=== PATIENT | female | born 1970 | race Caucasian/White ===

== ENCOUNTER 2024-07-12 10:09 | Inpatient (IN) | payer MEDICAID ==
[2024-07-09 12:21] LABS: EOSINOPHILS # (AUTO) 0.6 X10'3 (0-0.9); MONOCYTES # (AUTO) 0.9 X10'3 (0-0.9); PRE OP HEMOGLOBIN 13.5 g/dL (12.0-16.0); RED CELL DISTRIBUTION WIDTH 14.2 % (11.5-14.5)
[2024-07-09 12:23] LABS: BASOPHILS # (AUTO) 0.1 X10'3 (0-0.2); BASOPHILS % (AUTO) 0.9 % (0-1); EOSINOPHILS % (AUTO) 4.9 % (0-6); LYMPHOCYTES % (AUTO) 31.7 % (21-51); MEAN CORPUSCULAR HEMOGLOBIN 27.1 PG (27.0-31.0); MEAN CORPUSCULAR HGB CONC 33.3 g/dL (33.0-36.5); MEAN CORPUSCULAR VOLUME 81.3 FL (78-98); MEAN PLATELET VOLUME 8.3 FL (7.4-10.4); NEUTROPHILS % (AUTO) 55.5 % (42-75); PRE OP HEMATOCRIT 40.6 % (35.0-45.0); PRE OP PLATELET COUNT 464 X10'3 (140-440); PRE OP WHITE BLOOD COUNT 12.6 10'3 (4.8-10.8)
[2024-07-09 12:33] LABS: ALBUMIN 3.7 G/DL (3.4-5.0); ALBUMIN/GLOBULIN RATIO 0.8 (1.1-1.5); ALKALINE PHOSPHATASE 105 IU/L (46-116); BLOOD UREA NITROGEN 16 MG/DL (7-18); BUN/CREATININE RATIO 12.3 (10.0-20.0); CALCIUM 10.1 MG/DL (8.5-10.1); CHLORIDE 99 MMOL/L (99-107); PRE OP ALT 44 U/L (30-65); PRE OP ANION GAP 12 (8-16); PRE OP AST 32 U/L (10-37); PRE OP BILIRUB, TOTAL 0.3 MG/DL (0.0-1.0); PRE OP GLUCOSE 138 MG/DL (70-104); PRE OP POTASSIUM 4.4 MMOL/L (3.4-5.1); PRE OP SODIUM 138 MMOL/L (135-145); TOTAL CARBON DIOXIDE 26.9 MMOL/L (24-32); TOTAL PROTEIN 8.4 G/DL (6.4-8.2); eGFR 43 ML/MIN
[2024-07-09 12:37] LABS: HEMOGLOBIN A1C 6.9 % (4.5-6.2)
[2024-07-12] VITALS (28 sets, daily range): BP systolic 118–155; BP diastolic 54–86; PULSE 75–96; RESP 12–18; TEMP 98–98.8; O2SAT 90–100
[~2024-07-12] VITALS: Ht 172.7 cm; Wt 115.2 kg
[2024-07-12] MEDS: ceFAZolin 2gm in dextrose, iso 50 ML IV ONE (05:30)
[~2024-07-12 10:09] MED LIST: ARMO250T6 PO; BUPR300T53 PO; BUSP10TA10 PO; BUSP10TA11 PO; CETI10TA19 PO; CHOL200052 PO; CYCL5TAB4 PO; DICL100G31 TOP; DICY20TA17 PO; FLUT16SP11 BOTHNARES; FURO-150 PO; HYDR50TA65 PO; LURA120T PO; MELO-102 PO; METF-438 PO; NICO-631 TOP; OXYC1TAB17 PO; PREG200C29 PO; ROPIVAcaine 0.5% (5mg/ml) 30ml vial ONE; SEMA2PEN SUBCUT; SPIR25TA5 PO; VANCOMYCIN 1,500MG inj. 1,500 MG in normal saline 500ml IV soln 300 ML IV ONE; ceFAZolin 2gm in dextrose, iso 50 ML IV ONE; famotidine 20mg tablet PO ONE; mineral oil 10ml sterile, topical TP ONE; ringers solution, lacted 1,000 ML IV SCH; tranexamic acid 650mg tablet PO ONE
[2024-07-12] MEDS ORDERED: BUPIVACAINE/MELOXICAM 14 ML VIAL IL ONE (10:15)
[2024-07-12] MEDS ORDERED: tetracaine 1% (10mg/ml) pres. free inj. ONE (10:39)
[2024-07-12] MEDS ORDERED: BUPIVACAINE liposomal/PF 13.3 MG/ML 10mL vial IM ONE (10:39)
[2024-07-12] MEDS ORDERED: BUPIVAcaine/PF 5 mg/ml 10ml ONE (10:39)
[2024-07-12] MEDS: VANCOMYCIN/WATER FOR INJ (PEG) 1.5GM/300 ML IVPB IV ONE (10:48)
[2024-07-12] MEDS: ringers solution, lacted 1,000 ML IV SCH ×2 (10:48→12:20)
[2024-07-12] MEDS: famotidine 20mg tablet PO ONE (10:49)
[2024-07-12] MEDS: tranexamic acid 650mg tablet PO ONE (11:35)
[2024-07-12] MEDS ORDERED: fentaNYL/PF 50MCG/1 ML 2ML syringe ONE (11:39)
[2024-07-12] MEDS ORDERED: MIDAZolam 1mg/ml 10ml vial ONE (11:39)
[2024-07-12] MEDS ORDERED: PHENYLephrine 10mg/ml 5ml injection IV ONE (11:40)
[2024-07-12] MEDS ORDERED: hydrALAZINE 20mg/ml inj. IV PRN (12:20)
[2024-07-12] MEDS ORDERED: morphine 2 MG/ML inj. syringe IV PRN (12:20)
[2024-07-12] MEDS ORDERED: labetalol 20mg/4ml (5mg/ml) syringe IV PRN (12:20)
[2024-07-12] MEDS ORDERED: fentaNYL/PF 50MCG/1 ML 2ML syringe IV PRN ×2 (12:20)
[2024-07-12] MEDS ORDERED: ondansetron/PF 4mg/2ml inj IV PRN ×2 (12:20→14:20)
[2024-07-12] MEDS: BUPIVACAINE/MELOXICAM 14 ML VIAL IL ONE (12:32)
[2024-07-12] MEDS ORDERED: acetaminophen 325mg tablet PO PRN (14:20)
[2024-07-12] MEDS ORDERED: diphenhydrAMINE 25mg capsule PO PRN ×2 (14:20)
[2024-07-12] MEDS ORDERED: busPIRone 5mg tablet PO PRN (14:20)
[2024-07-12] MEDS ORDERED: cyclobenzaprine 10mg tablet PO PRN (14:20)
[2024-07-12] MEDS ORDERED: oxyCODONE IR 5mg (immed. release) tablet PO PRN (14:20)
[2024-07-12] MEDS ORDERED: magnesium hydroxide 30ml (MOM) UD suspension PO PRN (14:20)
[2024-07-12] MEDS ORDERED: HYDROmorphone inj. 0.5 MG/0.5 ML DISP.SYRIN IV PRN (14:20)
[2024-07-12] MEDS ORDERED: naloxone 0.4 mg/ml inj IV PRN (14:20)
[2024-07-12] MEDS ORDERED: SEMAGLUTIDE 2 MG SQ SCH (14:20)
[2024-07-12] MEDS ORDERED: HYDROmorphone 1 mg/ml syringe IV PRN (14:20)
[2024-07-12] MEDS ORDERED: bisacodyl 10mg suppository rectal RC PRN (14:20)
[2024-07-12] MEDS: ceFAZolin/D5W- 1GM premix 50 ML IV SCH (16:00)
[2024-07-12] MEDS: dicyclomine 10 MG capsule PO SCH (16:00)
[2024-07-12] MEDS: morphine 4 MG/ML inj SYRINge IV PRN (16:17)
[2024-07-12] MEDS: pregabalin 75mg capsule PO SCH (19:40)
[2024-07-12] MEDS: pregabalin 25mg capsule PO SCH (19:40)
[2024-07-12] MEDS: oxyCODONE IR 5mg (immed. release) tablet PO PRN (19:40)
[2024-07-12] MEDS: sennosides 8.6mg tablet PO SCH (19:41)
[2024-07-12] MEDS: metFORMIN 500mg tablet PO SCH (19:41)
[2024-07-12] MEDS: busPIRone 5mg tablet PO SCH (19:41)
[2024-07-12] MEDS: vancomycin/NS 1 GM ADD-VANTAGE 250 ML IV SCH (19:42)
[2024-07-12] MEDS ORDERED: DICLOFENAC SODIUM 1% gel 1 50GM tube TP PRN (20:00)
[2024-07-12] MEDS: acetaminophen 325mg tablet PO SCH (21:50)
[2024-07-12] MEDS: hydrOXYzine 25 MG tablet PO SCH (21:50)
[2024-07-12] MEDS: lurasidone 60mg tablet PO SCH (21:51)
[2024-07-12] MEDS: spironolactone 25 MG tablet PO SCH (21:51)
[2024-07-12] MEDS: potassium cl 20mEq in 1/2 NS 1,000 ML IV SCH (22:20)
[2024-07-13 02:00] VITALS: BP 159/67; PULSE 82; RESP 18; TEMP 98.7; O2SAT 90
[2024-07-13 05:57] LABS: BASOPHILS # (AUTO) 0.1 X10'3 (0-0.2); BASOPHILS % (AUTO) 0.5 % (0-1); EOSINOPHILS # (AUTO) 0.5 X10'3 (0-0.9); EOSINOPHILS % (AUTO) 4.7 % (0-6); HEMOGLOBIN 10.6 g/dl (12.0-16.0); LYMPHOCYTES # (AUTO) 2.8 X10'3 (1.1-4.8); LYMPHOCYTES % (AUTO) 23.9 % (21-51); MEAN CORPUSCULAR HEMOGLOBIN 26.8 PG (27.0-31.0); MEAN CORPUSCULAR HGB CONC 33.1 g/dL (33.0-36.5); MONOCYTES % (AUTO) 8.6 % (2-12); NEUTROPHILS # (AUTO) 7.2 X10'3 (1.8-7.7); NEUTROPHILS % (AUTO) 62.3 % (42-75); PLATELET COUNT 277 X10'3 (140-440); RED BLOOD COUNT 3.94 X10'6 (4.20-5.60); RED CELL DISTRIBUTION WIDTH 14.1 % (11.5-14.5); WHITE BLOOD COUNT 11.5 X10'3 (4.5-11.0)
[2024-07-13 06:28] LABS: ANION GAP 8 (8-16); CHLORIDE 105 MMOL/L (99-107); CREATININE 1.15 MG/DL (0.40-0.90); POTASSIUM 4.1 MMOL/L (3.5-5.1); SODIUM 139 MMOL/L (135-145); TOTAL CARBON DIOXIDE 25.6 MMOL/L (24-32); eCRCL 57 ML/MIN; eGFR 49 ML/MIN
[2024-07-13] MEDS ORDERED: cetirizine 10mg tablet PO PRN (08:00)
[2024-07-13] MEDS ORDERED: fluticasone nasal spray 16GM bottle NS PRN (08:00)
[2024-07-13] MEDS ORDERED: MELOXICAM 7.5 MG TABLET PO PRN (08:00)
[2024-07-13] MEDS ORDERED: ARMODAFINIL 250 MG PO SCH (08:00)
[2024-07-13 08:30] VITALS: RESP 18; O2SAT 93
[2024-07-13] MEDS: aspirin 325mg tablet PO SCH (09:48)
[2024-07-13] MEDS: cholecalciferol (vitamin D3) 1,000 unit (25mcg) tablet PO SCH (09:50)
[2024-07-13] MEDS: furosemide 20MG tablet PO SCH (09:51)
[2024-07-13] MEDS: BUPROPION HCL 150MG XL 24 HR 150 MG TAB PO SCH (09:52)
[2024-07-13 10:00] VITALS: BP 163/82; PULSE 90; RESP 18; TEMP 97.9; O2SAT 93
[2024-07-13 11:49] VITALS: RESP 18
[2024-07-13] MEDS ORDERED: celeCOXIB 100mg capsule PO SCH (20:00)
[2024-07-14] MEDS ORDERED: acetaminophen 325mg tablet PO PRN (18:20)
== END 2024-07-13 11:47 | disposition home or self-care (01) | DRG 326 ==
LOC: PAS IN 10:09 → MERGE 13:15 → ORTHO 4S 17:10
PROVIDERS: ADMIT Orthopaedic Surgery; ATTEND Orthopaedic Surgery
PROC: 8E0YXBZ Computer Assisted Procedure of Lower Extremity (ICD-10-PCS; 2024-07-12)
PROC: 8E0Y0CZ Robotic Assisted Procedure of Lower Extremity, Open Approach (ICD-10-PCS; 2024-07-12)
PROC: 3E0T3BZ Introduction of Anesthetic Agent into Peripheral Nerves and Plexi, Percutaneous Approach (ICD-10-PCS; 2024-07-12)
PROC: 0SRC0J9 Replacement of Right Knee Joint with Synthetic Substitute, Cemented, Open Approach (ICD-10-PCS; principal; 2024-07-12 11:40)
DX: M17.11 Unilateral primary osteoarthritis, right knee (principal); F31.9 Bipolar disorder, unspecified; J44.9 Chronic obstructive pulmonary disease, unspecified; M79.7 Fibromyalgia; Z90.49 Acquired absence of other specified parts of digestive tract; Z88.8 Allergy status to other drugs, medicaments and biological substances
CPT/HCPCS: 36415; 80051; 80053; 82565; 82948; 83036; 85025; 87081; 97110; 97116; 97161; 97530; A4215; A4615; A6449; A7000; C1713; C1776; C9088; G0378; J0665; J0666; J0690; J2250; J2270; J2371; J2795; J3010; J3370; J3372; J3480; J3490; J7120; Q0177

== ENCOUNTER 2025-01-07 09:06 | Inpatient (IN) | payer MEDICAID ==
[2025-01-04 12:41] LABS: MEAN PLATELET VOLUME 8.5 FL (7.4-10.4); PRE OP HEMATOCRIT 36.3 % (35.0-45.0); PRE OP HEMOGLOBIN 12.0 g/dL (12.0-16.0); PRE OP PLATELET COUNT 299 X10'3 (140-440); PRE OP WHITE BLOOD COUNT 10.7 10'3 (4.8-10.8); RED CELL DISTRIBUTION WIDTH 17.1 % (11.5-14.5)
[2025-01-04 12:52] LABS: CREATININE 1.29 MG/DL (0.40-0.90); PRE OP ALT 28 U/L (30-65); PRE OP ANION GAP 7 (8-16); PRE OP AST 26 U/L (10-37); PRE OP BILIRUB, TOTAL 0.3 MG/DL (0.0-1.0); PRE OP GLUCOSE 100 MG/DL (70-104); PRE OP POTASSIUM 4.0 MMOL/L (3.4-5.1); PRE OP SODIUM 142 MMOL/L (135-145); TOTAL CARBON DIOXIDE 30.8 MMOL/L (24-32); eGFR 43 ML/MIN
[~2025-01-07] VITALS: Ht 157.5 cm; Wt 104.3 kg
[2025-01-07] VITALS (26 sets, daily range): BP systolic 95–174; BP diastolic 63–94; PULSE 15–98; RESP 12–24; TEMP 97–98.1; O2SAT 92–97
[2025-01-07] MEDS: ceFAZolin 2gm/dext,iso 50mL 50 ML IV ONE (05:30)
[~2025-01-07 09:06] MED LIST changes: +ATOR40TA72 PO; +BUPIVACAINE/MELOXICAM 14 ML VIAL IL ONE; -CYCL5TAB4 PO; -DICL100G31 TOP; -FLUT16SP11 BOTHNARES; -HYDR50TA65 PO; +LIDO700A47 TOP; +LOSA25TA41 PO; +METF-436 PO; -METF-438 PO; -NICO-631 TOP; -PREG200C29 PO; -ROPIVAcaine 0.5% (5mg/ml) 30ml vial ONE; -VANCOMYCIN 1,500MG inj. 1,500 MG in normal saline 500ml IV soln 300 ML IV ONE; -ceFAZolin 2gm in dextrose, iso 50 ML IV ONE; -famotidine 20mg tablet PO ONE; -ringers solution, lacted 1,000 ML IV SCH; -tranexamic acid 650mg tablet PO ONE
[2025-01-07] MEDS: VANCOMYCIN/H2O 1.5g/300mL PB 300 ML IV ONE (09:41)
[2025-01-07] MEDS: ringers solution, lacted 1,000 ML IV SCH ×2 (09:41→16:26)
[2025-01-07] MEDS ORDERED: HYDROcodone/acetaminophen 10/325mg tab PO PRN (09:45)
[2025-01-07] MEDS ORDERED: tetracaine 1% (10mg/ml) pres. free inj. ONE (09:49)
[2025-01-07] MEDS ORDERED: fentaNYL/PF 50MCG/1 ML 2ML syringe ONE (09:53)
[2025-01-07] MEDS ORDERED: HYDROmorphone/PF 0.2 MG/ML SYRINGE IV PRN ×2 (10:25)
[2025-01-07] MEDS ORDERED: acetaminophen 1,000mg/100ml IV 100 ML IV PRN (10:25)
[2025-01-07] MEDS ORDERED: ondansetron/PF 4mg/2ml inj IV PRN (10:25)
[2025-01-07] MEDS ORDERED: morphine 4 MG/ML inj SYRINge IV PRN (10:25)
[2025-01-07] MEDS ORDERED: hydrALAZINE 20mg/ml inj. IV PRN (10:25)
[2025-01-07] MEDS ORDERED: labetalol 20mg/4ml (5mg/ml) syringe IV PRN (10:25)
[2025-01-07] MEDS ORDERED: propofol inj 20 ML IV ONE ×2 (10:26)
[2025-01-07] MEDS ORDERED: midazolam 1 mg/ML 2ml injection ONE (10:26)
[2025-01-07] MEDS ORDERED: ROPIVAcaine 0.5% (5mg/ml) 30ml vial ONE (10:26)
[2025-01-07] MEDS ORDERED: dexamethasone sod phosphate 4mg/ml inj. ONE (10:26)
[2025-01-07] MEDS ORDERED: 0.9 % SODIUM CHLORIDE 10 ML VIAL ONE ×2 (10:26→10:29)
[2025-01-07] MEDS ORDERED: ePHEDrine 50MG/ML INJ. ONE (10:29)
[2025-01-07] MEDS: BUPIVACAINE/MELOXICAM 14 ML VIAL IL ONE (10:56)
[2025-01-07] MEDS ORDERED: BUPIVAcaine/PF 2.5mg/ml (0.25%) 10ml vial ONE (12:00)
[2025-01-07] MEDS ORDERED: LIDOcaine 1% 30ml preserv. free vial ONE (12:00)
--- NOTE | 2025-01-07 12:16 | OPERATIVE REPORT ---
Operative Report Operative Report OPERATIVE REPORT [facility] [address] [place] [address] Date of service: January 07, 2025 PREOPERATIVE DIAGNOSIS M17..16 Unilateral primary osteoarthritis, left knee POSTOPERATIVE DIAGNOSIS M116 Unilateral primary osteoarthritis, left knee Operation Performed 86288 Total Knee Arthro[place]: [place] 10611 Computer Assisted Navigation Musculoskeletal - Imageless with this modifier: LT Procedure: Computer-assisted, robotically-assisted, left total knee arthroplasty. Surgeon: Dr. Vikas Heck Web Marketing Analyst: Bernie franz PA-C Anesthesiologist: Dr. Moreira Anesthesia: General anesthetic and regional blocks Indications: 54-year-old female who has chronic osteoarthritis of the left knee with severe pain and limitation of activities despite extensive non-operative management. This patient has had extensive conservative treatment of knee joint arthritis, including rest, external joint support, anti-inflammatory medications, physical therapy, and corticosteroid injection. Physical therapy has been provided, along with a home exercise program prior to making the decision to proceed with surgical treatment. This therapeutic intervention did not provide any substantial relief of symptoms or improvement in function. The patient has been utilizing a cane, set of crutches, or walker, for more than 3 months prior to deciding to proceed with surgery. These interventions have not provided sufficient relief of pain to allow improvement in function. The patient has utilized non-steroidal anti-inflammatory medications for relief of pain over an extended period of time (more than 2 months), and has not experienced sufficient improvement in symptoms. Despite these treatments, this patient has continued difficulties with pain and limited function. They are unable to walk long distances, do vigorous activities, sit or sleep comfortably. Total knee replacement is the next reasonable step in terms of treatment. Indications for administrative support assistant surgeon: A second set of skilled hands with specific orthopedic knowledge of the surgical procedure and orthopedic surgical techniques was necessary to accomplish this operation successfully, and with the least amount of morbidity for the patient. This facilitated operative exposure, manipulation and handling of tissues, placement of any implants, and accomplishment of wound closure. Findings: There was indeed a very severely arthritic knee, with loss of cartilage, exposed bone, and marginal osteophytes. The medial compartment was particularly bad. A for degree varus deformity and 16 degree flexion contracture were measured preoperatively. Post operative alignment was 0 varus, and 1 degree flexion. Complications: None Estimated Blood Loss: 150 mL Implants: A [employer] CR total knee system was utilized with a size six narrow left bone ingrowth femoral component, a size D left bone ingrowth tibial component, and a 32 mm cemented patellar component. A 10 mm medial congruent right tibial insert was utilized. The [employer] robotically assisted total knee arthroplasty system and computer was utilized. Procedure: The risks, benefits, expected results, and possible complications of the planned procedure had been explained to the patient and informed consent obtained. The patient was taken to the operating room and underwent a spinal anesthetic. The patient was placed in the supine position on the operating table, and the left leg was prepped and draped in the usual fashion. A timeout was taken prior to surgery, confirming patient identification, operative side operative site, planned procedure, administration of pre-operative antibiotics, site marking, and presence of all necessary implants and instruments, x-rays and equipment. A standard anterior, slightly mediall approach was performed with a medial parapatellar arthrotomy, and a VMO split. Time was then spent removing excessive synovial tissue and exposing the medial and lateral gutters, as well as moving the anterior sections of the residual menisci. The patella was mobilized to be able to be retracted laterally. This gave exposure of the anterior aspect of the knee. Attention was then directed to the patella. An oscillating saw was utilized to make a flat cut in a freehand manner, removing approximately 9 mm of thickness. The patella was then sized and drilled for the appropriate size patella implant. Infrared arrays were then placed on the femur and the tibia. Utilizing the [employer] computer system, the hip, knee, and ankle were landmarked in usual fashion. The initial alignment measurements were then taken confirming the above listed deformity. Surgical planning was then carried out on the computer, confirming alignment of components, sizing, and gap balancing. Appropriate soft tissue releases were performed. The robot was then utilized to make the distal femoral cut. The femur was prepared in 4 degrees of flexion and neutral coronal alignment. The distal femoral 4 in 1 block was placed with the robot, and the remaining femoral cuts also performed. The robot was then utilized to cut the proximal tibia in 5 degrees of flexion and neutral coronal alignment. The computer was then utilized to check longitudinal alignment and soft tissue balance, and this confirmed excellent alignment. Next the dynamic balancing block was utilized to check and adjust soft tissue balancing. A repeat cut of the femur was performed, removing 2 more millimeters of bone to obtain appropriate flexion and extension gap balancing. Finally, attention was directed to the proximal tibia. The implant was sized and properly rotated, and the peg punch performed. Final check of alignment and balancing was then carried out, as well as final removal and cleaning up of soft tissue such as meniscal remnants and osteophytes. Cement was then mixed; one batch was utilized for the patella. The tibia was impacted with the mallet, seating it quite nicely in its proper rotational alignment. The femoral cuts were cleaned with a pulsating lavage and then dried with the lap sponges, and the femur was impacted into position with a mallet. The patella was held firmly in place with a clamp. Excess cement was removed around the margins of the patella as the cement cured. Pressure was held on the femoral component and tibia by placing a spacer and bringing the leg to full extension and applying axial and hyperextension force. Upon complete hardening of all cement, the knee was inspected and excess cement removed. We lavaged the knee to wash out any debris. The tibial trial spacer was replaced and overall alignment checked with computer, ensuring we had full extension of the knee, and appropriate medial and lateral soft tissue balance, as well as flexion and extension balance. The wound was irrigated thoroughly one more time and then dried with lap sponges. The final tibial spacer was impacted and locked into the locking mechanism without difficulty After final irrigation and suction of excess fluid, t yes he knee was infiltrated with Zynrelief for postoperative pain control. The tibial and femoral navigation pins and arrays were removed. The wound was then closed in layers including retinacular closure, subcutaneous tissue, and skin. Sterile dressing was applied and the patient was returned to the recovery room in satisfactory condition. Electronically Signed by: Vikas Heck MD Doctor, Orthopedic Surgery Signed on: 01/07/2025 12:14 PM VIKAS HECK MD Jan 07, 2025 12:16
[2025-01-07] MEDS ORDERED: oxyCODONE IR 5mg (immed. release) tablet PO PRN (15:45)
[2025-01-07] MEDS: oxyCODONE IR 5mg (immed. release) tablet PO PRN (16:12)
[2025-01-08 01:50] VITALS: BP 136/82; PULSE 84; RESP 17; TEMP 98.1; O2SAT 94
[2025-01-08 06:00] VITALS: BP 134/76; PULSE 83; RESP 16; TEMP 97.8; O2SAT 93
[2025-01-08] MEDS: MELOXICAM 7.5 MG TABLET PO SCH (08:00)
[2025-01-08] MEDS: cholecalciferol (vitamin D3) 1,000 unit (25mcg) tablet PO SCH (08:37)
[2025-01-08 08:38] VITALS: BP_SYST 134; PULSE 83
[2025-01-08] MEDS: BUPROPION HCL 150MG XL 24 HR 150 MG TAB PO SCH (08:38)
[2025-01-08 09:16] VITALS: RESP 20
--- NOTE | 2025-01-08 13:28 | DISCHARGE SUMMARY ---
Discharge Summary [facility] ~ Discharge Summary Discharge Date: Jan 08, 2025 *Problems/Diagnosis: (1) Osteoarthritis of right knee Status: Chronic Admission Diagnosis: s/p Left TKA Discharge Diagnosis\Comment: Osteoarthritis of the left knee Operations\Procedures Left total knee arthroplasty Consultants: None Complications: None Condition on DC: Stable Discharge Summary: On the day of admission the patient was taken to the operating room where she underwent a knee replacement. She tolerated this procedure well and on the following day she was discharged to home. She will follow up in my office in a week and a half to two weeks Medications Home Meds: Home Medications Active Reported Ozempic (Semaglutide) 2 Mg/0.75 Ml (8 Mg/3 Ml) Pen.injctr 10 Mg SUBCUT Q7D 30 Days Lasix* (Furosemide) 20 Mg Tablet 0.5 Tab PO DAILY 30 Days Lidocaine 5 % Adh..patch 1 Patch TOP DAILY PRN 30 Days Metformin Hcl 500 Mg Tablet 1 Tab PO Q12H 30 Days Losartan Potassium 25 Mg Tablet 25 Mg PO QPM Cetirizine HCl 10 Mg Tab.chew 1 Tab PO QPM 30 Days Atorvastatin Calcium 40 Mg Tablet 1 Tab PO HS Buspirone HCl 10 Mg Tablet 1 Tab PO NOON Buspar* (Buspirone HCl) 10 Mg Tablet 2 Tab PO Q12H Vitamin D3 (Cholecalciferol (Vitamin D3)) 50 Mcg (2000 Unit) Tablet 1 Tab PO DAILY Dicyclomine HCl 20 Mg Tablet 1 Tab PO Q8H Latuda (Lurasidone HCl) 120 Mg Tablet 1 Tab PO HS Spironolactone 25 Mg Tablet 1 Tab PO BID Meloxicam 15 Mg Tablet 1 Tab PO DAILY Armodafinil 250 Mg Tablet 1 Tab PO DAILY Wellbutrin Xl (Bupropion HCl) 300 Mg Tab.er.24h 1 Tab PO QAM Oxycodone-Acetaminophen 10-325 (Oxycodone Hcl/Acetaminophen) 10 Mg-325 Mg Tablet 1 Tab PO QID PRN PRN Problem Qualifiers (1) Osteoarthritis of right knee: Qualified Codes: M17.11 - Unilateral primary osteoarthritis, right knee HUMZA HECK MD Jan 08, 2025 13:28
[2025-01-10] MEDS ORDERED: SEMAGLUTIDE SQ SCH (08:00)
== END 2025-01-08 10:00 | disposition home or self-care (01) | DRG 326 ==
LOC: PAS IN 09:06 → ORTHO 4S 15:20
PROVIDERS: ADMIT Orthopaedic Surgery; ATTEND Orthopaedic Surgery
PROC: 8E0Y0CZ Robotic Assisted Procedure of Lower Extremity, Open Approach (ICD-10-PCS; 2025-01-07)
PROC: 0SRD0J9 Replacement of Left Knee Joint with Synthetic Substitute, Cemented, Open Approach (ICD-10-PCS; principal; 2025-01-07 09:54)
DX: M17.12 Unilateral primary osteoarthritis, left knee (principal); Z79.899 Other long term (current) drug therapy
CPT/HCPCS: 36415; 80053; 82948; 83036; 85025; 97110; 97116; 97161; 97530; A4215; A4615; A6449; A7000; C1713; C1776; C9088; G0378; J0690; J1100; J2003; J2250; J2704; J2795; J3010; J3375; J3490; J7120